=== PATIENT | female | born 1995 | race Native Hawaiian/Other Pacific Islander ===

== ENCOUNTER 2018-01-16 14:33 | Emergency (ER) | payer BC ==
[~2018-01-16] VITALS: Ht 154.9 cm; Wt 68.0 kg
[2018-01-16 14:40] VITALS: TEMP 97.7
[2018-01-16 15:20] LABS: PLATELET COUNT 249 K/uL (152-353)
[2018-01-16 15:59] LABS: POTASSIUM 3.6 mmol/L (3.6-5.2)
[2018-01-16 19:10] VITALS: BP 128/78
== END 2018-01-16 19:10 | disposition other institution (70) ==
LOC: ED 14:33
PROVIDERS: Family Medicine
DX: F32.9 Major depressive disorder, single episode, unspecified (principal)
CPT/HCPCS: 36415; 80053; 80307; 80320; 80329; 81000; 81025; 85027; 99285

== ENCOUNTER 2019-09-20 10:55 | Outpatient (CLI) | payer BC | END 2019-09-20 23:01 | disposition home or self-care (01) | LOC: LABW 10:55 | DX: Z00.00 Encounter for general adult medical examination without abnormal findings (principal) | CPT/HCPCS: 36415; 86480 ==

== ENCOUNTER 2021-09-27 14:37 | Outpatient (CLI) | payer BC | END 2021-09-27 18:57 | disposition home or self-care (01) | LOC: LABW 14:37 | PROVIDERS: ATTEND Internal Medicine | DX: Z00.00 Encounter for general adult medical examination without abnormal findings (principal) | CPT/HCPCS: 36415; 86480 ==

== ENCOUNTER 2021-12-27 09:16 | Outpatient (CLI) | payer BC ==
[2021-12-27 10:18] LABS: POTASSIUM 3.3 mmol/L (3.6-5.2)
== END 2021-12-27 20:26 | disposition home or self-care (01) ==
LOC: LABW 09:16
PROVIDERS: ATTEND Internal Medicine Endocrinology, Diabetes & Metabolism
DX: E88.81 Metabolic syndrome and other insulin resistance (principal); E28.2 Polycystic ovarian syndrome; N92.4 Excessive bleeding in the premenopausal period; N80.9 Endometriosis, unspecified; L65.9 Nonscarring hair loss, unspecified; L68.0 Hirsutism
CPT/HCPCS: 36415; 80053; 82627; 82672; 82977; 83001; 83002; 83525; 84146; 84402; 86376; 86800